=== PATIENT | male | born 1990 | race Hispanic/Latino ===

== ENCOUNTER 2017-11-20 23:39 | Emergency (ER) | payer SELFPAY ==
[2017-11-21 00:58] VITALS: BP 126/92
[2017-11-21 02:44] LABS: Bilirubin,Urine NEG (Negative); Blood,Urine NEG (Negative); Color,Urine Yellow (Yellow); Mucus,Urine FEW /HPF; Protein,Urine <15 mg/dL mg/dL (Negative)
[2017-11-21] MEDS ORDERED: ZOFRAN IV ONE (02:54)
[2017-11-21] MEDS ORDERED: NACL 0.9% 1000 ML 1,000 ML IV ONE (02:54)
[2017-11-21 03:10] LABS: Basophils # (Auto) 0.1 K/mm3 (0.0-0.1); Basophils % (Auto) 0.7 % (0.0-1.8); Eosinophils # (Auto) 0.2 K/mm3 (0.0-0.4); Eosinophils % (Auto) 1.6 % (0.0-4.3); Hemoglobin 16.3 gm/dl (11.8-15.2); Lymphocytes # (Auto) 2.5 K/mm3 (1.2-5.4); Lymphocytes % (Auto) 24.9 % (13.4-35.0); Mean Corpuscular HGB Conc 34 % (32-34); Mean Corpuscular Hemoglobin 30 pg (28-32); Mean Corpuscular Volume 90 fl (84-94); Monocytes # (Auto) 0.8 K/mm3 (0.0-0.8); Monocytes % (Auto) 7.7 % (0.0-7.3); Platelet Count 252 K/mm3 (140-440); Red Blood Count 5.35 M/mm3 (3.65-5.03); Red Cell Distribution Width 13.8 % (13.2-15.2)
--- NOTE | 2017-11-21 03:17 | XRay Report ---
FINAL REPORT EXAM: XR CHEST ROUTINE 2V HISTORY: cough productive fever tachy COMPARISON: None available. FINDINGS:: Frontal and lateral views of the chest obtained. Cardiac silhouette is within normal limits. No focal consolidation or effusion. No pneumothorax. Visualized bony thorax is grossly intact. IMPRESSION:: No acute findings.
--- NOTE | 2017-11-21 03:22 | Emergency Department Report ---
- General Chief complaint: Weakness Stated complaint: FEVER/EMESIS/FLU SX Time Seen by Provider: 11/21/17 02:53 Source: patient Mode of arrival: Ambulatory Limitations: No Limitations - History of Present Illness Initial comments: Umair presents for nausea and vomiting tient 27-year-old male generalized malaise for 3 days has been no fever patient denies diarrhea Patient does endorse smoking pack a day cigarettes denies history of bronchitis MD Complaint: generalized weakness, lack of energy Onset/Timin -: days(s) Location: generalized Severity: moderate Severity scale (0 -10): 4 Quality: aching Consistency: constant Improves with: none Worsens with: none Associated Symptoms: denies: chest pain, confusion, dark stools, diaphoresis, dysuria, fever/chills, loss of appetite, nausea/vomiting, myalgias, rash, shortness of breath, syncope - Related Data Previous Rx's Medication Instructions Recorded Last Taken Type Acetaminophen/Codeine [Tylenol #3] 1 tab PO Q6H PRN #10 tab 12/10/14 Unknown Rx Sulfamethoxazole/Trimethoprim 1 each PO BID #14 tablet 12/10/14 Unknown Rx [Bactrim DS TAB] Dicyclomine [Bentyl] 10 mg PO QID PRN #40 capsule 11/21/17 Unknown Rx Naproxen 500 mg PO BID PRN #30 tablet 11/21/17 Unknown Rx Ondansetron [Zofran Odt] 4 mg PO TID PRN #10 tab.rapdis 11/21/17 Unknown Rx Allergies Allergy/AdvReac Type Severity Reaction Status Date / Time No Known Allergies Allergy Verified 12/10/14 01:05 ED Review of Systems ROS: Stated complaint: FEVER/EMESIS/FLU SX Other details as noted in HPI Constitutional: chills, fever Eyes: denies: eye pain, eye discharge, vision change ENT: denies: ear pain, throat pain Respiratory: denies: cough, shortness of breath, wheezing Cardiovascular: denies: chest pain, palpitations Endocrine: no symptoms reported Gastrointestinal: denies: abdominal pain, nausea, diarrhea, constipation, hematemesis, melena Genitourinary: denies: dysuria, frequency, hematuria, discharge, testicular pain , testicular mass Musculoskeletal: denies: back pain, joint swelling, arthralgia Skin: denies: rash, lesions ED Past Medical Hx - Past Medical History Previous Medical History?: No - Surgical History Past Surgical History?: No - Social History Smoking Status: Current Every Day Smoker Substance Use Type: None - Medications Home Medications: Home Medications Medication Instructions Recorded Confirmed Last Taken Type Acetaminophen/Codeine [Tylenol #3] 1 tab PO Q6H PRN #10 tab 12/10/14 Unknown Rx Sulfamethoxazole/Trimethoprim 1 each PO BID #14 tablet 12/10/14 Unknown Rx [Bactrim DS TAB] Dicyclomine [Bentyl] 10 mg PO QID PRN #40 capsule 11/21/17 Unknown Rx Naproxen 500 mg PO BID PRN #30 tablet 11/21/17 Unknown Rx Ondansetron [Zofran Odt] 4 mg PO TID PRN #10 tab.rapdis 11/21/17 Unknown Rx ED Physical Exam - General Limitations: No Limitations General appearance: alert, in no apparent distress - Head Head exam: Present: atraumatic, normocephalic - Eye Eye exam: Present: normal appearance - ENT ENT exam: Present: mucous membranes moist, TM's normal bilaterally. Absent: normal orophraynx - Neck Neck exam: Present: normal inspection, full ROM. Absent: tenderness, lymphadenopathy - Expanded Neck Exam Expanded Neck exam: Present: tenderness. Absent: midline deformity, anterior neck swelling, thyroid mass, carotid bruit, tracheal deviation - Respiratory Respiratory exam: Present: normal lung sounds bilaterally. Absent: wheezes, stridor, chest wall tenderness - Cardiovascular Cardiovascular Exam: Present: regular rate, normal rhythm, normal heart sounds. Absent: systolic murmur, diastolic murmur, rubs, gallop - GI/Abdominal GI/Abdominal exam: Present: soft. Absent: distended, rebound, mass, hernia - Rectal Rectal exam: Present: deferred - Extremities Exam Extremities exam: Present: normal inspection, full ROM, normal capillary refill. Absent: tenderness, pedal edema, joint swelling, calf tenderness - Back Exam Back exam: Present: normal inspection. Absent: full ROM, tenderness, CVA tenderness (R), CVA tenderness (L), muscle spasm, paraspinal tenderness, vertebral tenderness - Neurological Exam Neurological exam: Present: alert, oriented X3, CN II-XII intact, normal gait, reflexes normal. Absent: motor sensory deficit - Psychiatric Psychiatric exam: Present: normal affect, normal mood - Skin Skin exam: Present: warm, dry, intact, normal color. Absent: rash ED Course Vital Signs 11/21/17 00:52 Temperature 98.2 F Pulse Rate 104 H Respiratory 20 Rate Blood Pressure 126/92 O2 Sat by Pulse 99 Oximetry ED Medical Decision Making - Lab Data Result diagrams: 11/21/17 03:00 11/21/17 03:00 Critical care attestation.: If time is entered above; I have spent that time in minutes in the direct care of this critically ill patient, excluding procedure time. ED Disposition Clinical Impression: Mild dehydration Nausea and vomiting Qualifiers: Vomiting type: unspecified Vomiting Intractability: non-intractable Qualified Code(s): R11.2 - Nausea with vomiting, unspecified Disposition: TO HOME OR SELFCARE Is pt being admited?: No Does the pt Need Aspirin: No Condition: Good Instructions: Dehydration (ED), Viral Syndrome (ED) Prescriptions: Dicyclomine [Bentyl] 10 mg PO QID PRN #40 capsule PRN Reason: abd spasm Naproxen 500 mg PO BID PRN #30 tablet PRN Reason: Pain , Severe (7-10) Ondansetron [Zofran Odt] 4 mg PO TID PRN #10 tab.rapdis PRN Reason: nausea and vomiting Referrals: [facility] [Outside] - 3-5 Days Forms: Work/School Release Form(ED)
[2017-11-21 03:41] LABS: Alanine Aminotransferase 10 units/L (7-56); Albumin 4.7 g/dL (3.9-5); BUN/Creatinine Ratio 15; Blood Urea Nitrogen 12 mg/dL (9-20); Calcium 9.4 mg/dL (8.4-10.2); Hemolysis Index 18
== END 2017-11-21 04:55 | disposition home or self-care (01) ==
LOC: ED 23:39
DX: E86.0 Dehydration (principal); F17.200 Nicotine dependence, unspecified, uncomplicated
CPT/HCPCS: 36415; 71046; 80053; 81001; 83690; 85025; 96361; 96374; 99284; J2405; J7030